=== PATIENT | female | born 1985 | race Hispanic/Latino ===

== ENCOUNTER 2024-05-24 09:46 | Inpatient (IN) | payer MEDICAID, OTHER ==
[2024-05-23 13:13] LABS: Hematocrit 37.7 % (34.9-44.5); Hemoglobin 13.2 g/dL (12.0-15.5); Platelet Count 224 10x3/uL (150-450)
[2024-05-23 13:47] LABS: Syphilis Antibody Nonreactive (Nonreactive); Syphilis Antibody Index 0.05 S/CO (<1.00 Non-Reactive)
[2024-05-23 13:49] LABS: HBsAg Index 0.16 S/CO (0-0.99); Hep B Surf Ag Non-Reactive S/CO (NonReactive)
[2024-05-24] MEDS ORDERED: Carboprost 250 MCG/ML AMP IM PRN (10:57)
[2024-05-24] MEDS ORDERED: hydrALAZINE 20 MG/ML VIAL SLOW IVP PRN ×2 (10:57→18:03)
[2024-05-24] MEDS ORDERED: Famotidine/PF 20 mg/2ml Vial SLOW IVP PRN (10:57)
[2024-05-24] MEDS ORDERED: Docusate 100 MG CAP PO PRN (10:57)
[2024-05-24] MEDS ORDERED: Promethazine HCl 25 MG/ML VIAL IM PRN (10:57)
[2024-05-24] MEDS ORDERED: Ondansetron PF 4 MG/2 ML Vial IVP PRN ×2 (10:57→11:27)
[2024-05-24] MEDS ORDERED: Misoprostol 200 MCG TAB PR PRN (10:57)
[2024-05-24] MEDS ORDERED: Methylergonovine 0.2 MG/ML VIAL IM PRN (10:57)
[2024-05-24] MEDS ORDERED: Bicitra 30 ML UDCUP PO PRN (10:57)
[2024-05-24 11:10] LABS: Hematocrit 38.4 % (34.9-44.5); Hemoglobin 13.3 g/dL (12.0-15.5); Mean Corpuscular HGB CONC 34.6 g/dL (32.0-36.0); Mean Corpuscular Hemoglobin 28.2 pg (27.0-33.0); Mean Corpuscular Volume 81.4 fL (81.6-98.3); Mean Platelet Volume 12.3 fL (7.4-10.4); Platelet Count 221 10x3/uL (150-450); Red Blood Cell (RBC) Count 4.72 10x6/uL (3.90-5.03); White Blood Cell (WBC) Count 8.5 10x3/uL (3.5-10.5)
[2024-05-24] MEDS ORDERED: HYDROmorphone 0.5 MG/0.5 ML SYRINGE SLOW IVP PRN (11:27)
[2024-05-24] MEDS ORDERED: Meperidine HCl/PF 25 MG (1 mL) VIAL SLOW IVP PRN (11:27)
[2024-05-24] MEDS ORDERED: Naloxone HCl 0.4 mg/ml Vial IVP PRN ×2 (11:27)
[2024-05-24] MEDS ORDERED: Naloxone HCl 0.4 mg/ml Vial IV PRN (11:27)
[2024-05-24] MEDS ORDERED: Ketorolac Tromethamine 30 MG (1 mL) VIAL IVP PRN (11:27)
[2024-05-24] MEDS ORDERED: fentaNYL 50 mcg/mL 1 mL Vial SLOW IVP PRN (11:27)
[2024-05-24] MEDS ORDERED: Moisturizing Cream (Eucerin) 113 GM JAR TOP PRN (11:27)
[2024-05-24] MEDS ORDERED: diphenhydrAMINE 50 MG/ML VIAL IVP PRN (11:27)
[2024-05-24] MEDS ORDERED: Communication Order-Pharmacy FS SCH (11:30)
[2024-05-24] MEDS ORDERED: Ketorolac Tromethamine 30 MG (1 mL) VIAL IVP SCH (11:30)
[2024-05-24 11:47] LABS: HBsAg Index 0.14 S/CO (0-0.99); Hep B Surf Ag - L&D Non-Reactive S/CO (NonReactive)
[2024-05-24 11:48] LABS: Syphilis Antibody Nonreactive (Nonreactive); Syphilis Antibody Index 0.04 S/CO (<1.00 Non-Reactive)
[2024-05-24] MEDS: CEFAZOLIN 2 GM in Sodium Chloride 0.9% 100 ML IVPB SCH ×2 (12:07→19:34)
[2024-05-24 13:41] VITALS: BMI 47.8
[2024-05-24] MEDS: Oxytocin 30 units/NS 500 ML 500 ML IV SCH (14:35)
[2024-05-24] MEDS: Dexamethasone 4 mg/ml Vial ONE (14:57)
[2024-05-24] MEDS: Ondansetron PF 4 MG/2 ML Vial ONE (14:57)
[2024-05-24] MEDS: Morphine PF 10 MG/10 ML VIAL ONE (14:57)
[2024-05-24] MEDS: fentaNYL 50 mcg/mL 1 mL Vial ONE (14:57)
[2024-05-24] MEDS: PHENYLEPHRINE-NS 100 MCG/ML 10 ML SYRINGE ONE (14:58)
[2024-05-24] MEDS: ePHEDrine Sulfate 50 MG/10 ML VIAL ONE (14:58)
[2024-05-24] MEDS: Oxytocin 10 UNITS/ML VIAL ONE (14:58)
[2024-05-24] MEDS: Ondansetron PF 4 MG/2 ML Vial IVP PRN (15:21)
[2024-05-24] MEDS: Promethazine HCl 25 MG/ML VIAL IM PRN (16:05)
[2024-05-24] MEDS ORDERED: Bisacodyl 10 MG SUPP PR PRN (18:03)
[2024-05-24] MEDS ORDERED: Simethicone Chewable 80 MG TAB PO PRN (18:03)
[2024-05-24] MEDS ORDERED: diphenhydrAMINE 25 MG CAP PO PRN (18:03)
[2024-05-24] MEDS ORDERED: Boostrix 0.5 ML (Tdap) VIAL (>/=7 yrs of age) IM ONE (18:03)
[2024-05-24] MEDS: Acetaminophen 325 MG TAB PO SCH (18:48)
[2024-05-24] MEDS: Enoxaparin 40 MG (0.4 mL) SYRINGE SC SCH (22:13)
[2024-05-24] MEDS: Docusate 100 MG CAP PO SCH (22:13)
[2024-05-25 03:28] LABS: Hematocrit 31.5 % (34.9-44.5); Hemoglobin 10.7 g/dL (12.0-15.5); Mean Corpuscular Hemoglobin 28.8 pg (27.0-33.0); Mean Corpuscular Volume 84.7 fL (81.6-98.3); Mean Platelet Volume 11.8 fL (7.4-10.4); Platelet Count 206 10x3/uL (150-450); RBC Distribution Width 13.2 % (11.5-14.5); Red Blood Cell (RBC) Count 3.72 10x6/uL (3.90-5.03); White Blood Cell (WBC) Count 11.6 10x3/uL (3.5-10.5)
[2024-05-25] MEDS: HYDROcodone/Acetaminophen 5/325 mg Tablet PO PRN (09:16)
[2024-05-25] MEDS: Prenatal Vitamin 1 TAB PO SCH (09:16)
[2024-05-25] MEDS: Ibuprofen 800 MG TAB PO SCH ×2 (15:43→22:07)
[2024-05-26 11:43] VITALS: BP 97/53; TEMP 98.2
== END 2024-05-26 13:50 | disposition home or self-care (01) | DRG 788 ==
LOC: CSHLD 09:46 → CSHPP 16:34
PROVIDERS: ADMIT Family Medicine; ATTEND Family Medicine
PROC: 10D00Z1 Extraction of Products of Conception, Low, Open Approach (ICD-10-PCS; principal; 2024-05-24)
DX: O32.1XX0 Maternal care for breech presentation, not applicable or unspecified (principal); O99.214 Obesity complicating childbirth; O43.113 Circumvallate placenta, third trimester; E66.01 Morbid (severe) obesity due to excess calories; O99.824 Streptococcus B carrier state complicating childbirth; O24.420 Gestational diabetes mellitus in childbirth, diet controlled; Z3A.39 39 weeks gestation of pregnancy; Z37.0 Single live birth
CPT/HCPCS: 36415; 36416; 85014; 85018; 85027; 85049; 86780; 86850; 86900; 86901; 87340; J1100; J1650; J2274; J2405; J2550; J2590; J3010; J3490